=== PATIENT | female | born 1970 | race Caucasian/White ===

== ENCOUNTER 2017-02-24 14:52 | Outpatient (CLI) | payer OTHER ==
[~2017-02-24] VITALS: Ht 162.6 cm; Wt 74.5 kg
--- NOTE | 2017-02-24 15:28 | PN ---
Date/Time of Note Date/Time of Note DATE: 02/24/17 TIME: 15:23 Outpatient Progress Note Chief Complaint Abdominal pain/UTI/diabetes HPI Abdominal pain/patient has slight abdominal discomfort, patient was recently hospitalized, patient had kidney stone, patient had JJ stent removed and according to patient told stone was lasered and new JJ stent was placed on, patient still has slight right side of the abdominal discomfort, pain bearable with Ward, UTI/no frequency urgency, patient on Macrobid, Diabetes/no polyps or polyuria hypoglycemia, Review of Systems Const: No Fever, no chills, no Wt. loss, no Fatigue, normal appetite, no diaphoresis. Eyes: No pain, no discharge, no redness, no visual change, no foreign body. ENT: No pain, no bleeding, no congestion, no sore throat, no dysphagia, no discharge or rhinitis. Lymph: No adenopathy, no tender nodes, no lymphedema. Resp: No SOB, no cough, no sputum, no wheezing, no chest pain. CV: No chest pain, no palpitaions, no LOCKETT, no PND, no edema. GI: Normal appetite, right-sided abdominal pain and minimal flank discomfort,, no nausea, no vomiting, no diarrhea, no blood, no constipation. : No frequency, no urgency, no dysuria, no hematuria, no flank pain, no discharge, no bleeding. Musc: Delete no back pain, no neck pain, no knee pain, no restricted ROM. Skin: No rash, no skin lesions, no erythema, no laceration, no bruising, no pruritus. Neuro: No GRIER, no dizziness, no syncope, no seizure, no focal-weakness. Endo: No polyuria, no polydypsia, no dry-skin, no temp-intolerance. Psych: No hallucinations, no depression, no anxiety, no suicidal ideation. Ext: No edema, no pain, no ulcer, no weakness. Physical Exam General Appearance: A 47 year-old female who appears well-developed, well- nourished, in no acute distress. HEENT: Head normocephalic, atraumatic. Pupils equal, round, reactive to light and accommodate. Sclerae are no jaundice. Nasal turbinates pink without erythema or nasal discharge. Mucous membranes pink and moist without lesions. Oropharynx clear without any exudate or discharge. NECK: Supple. Trachea midline, No thyromegaly, No cervical lymphadenopathy, No mass, No carotid bruits, No JVD, Carotid pulses 2+ bilaterally. PULMONARY: Clear to auscultaion bilaterally, No retractions, Chest expansion symmetric bilaterally, no rales, no ronchi, no dulness on percussion. CARDIAC: Normal SI and S2, Regular rate and rythm, no murmur, gallop, or rub. GASTROINTESTINAL: Abdomen is soft, minimal abdominal discomfort,, Non Rigid, No distention, Positive bowel sounds x4 quadrants, Liver normal. SKIN: Warm, dry, no rash, no bruise, no echmosis. EXTREMITIES: Bilateral lower extremities normal, no edema, no phlabitus, pulse palpable, no contracture. MUSCULOSKELETAL: Spine Normal, Non-tender, Normal range of motion, No swelling, no deformity, no clubbing, or cyanosis, the patient has no edema to bilateral lower extremities, dorsalis pedis pulses palpable bilaterally. NEUROLOGIC: The patient is awake, alert, oriented, responding to yes/no questions appropriately, moving all extremities, cranial nerve intact, normal strenght, normal power, normal coordination, normal gait. PMH No allergy, Kidney stone/UTI/diabetes/sinus tachycardia Social Hx No smoking no drinking, Family Hx Noncontributory Assessment/Plan Impression Abdominal pain/UTI/diabetes/sinus tachycardia Plan Patient education done about her condition, Patient blood sugar under control, control the blood sugar control the weight, Patient has antibiotic, and pain medication, patient comfortable with the pain medication at present, Patient has sinus tachycardia in the hospital, patient was put on telemetry, patient still has sinus tachycardia, I do not have any results of thyroid function, Patient blood pressure is still elevated, and has sinus tachycardia, will add metoprolol 25 mg daily, if sinus tachycardia persist will do thyroid function test, If sinus tachycardia persist patient may need workup patient explained, side effects of medication explained, Patient advised to go to the ER if patient has a temperature, or sepsis, or call us or go to primary physician, Patient has appointment with urologist also, TYLER DODGE MD Feb 24, 2017 15:28
[2017-02-24] MEDS ORDERED: HYDR-902 PO (15:37)
[2017-02-24] MEDS ORDERED: LINE600T PO (15:37)
[2017-02-24 15:38] VITALS: BP 144/81; PULSE 115; RESP 18; Ht 162.6 cm; Wt 74.5 kg
== END 2017-02-24 16:38 | disposition home or self-care (01) ==
LOC: DCC 14:52
PROVIDERS: ATTEND Internal Medicine
DX: R10.9 Unspecified abdominal pain (principal); N39.0 Urinary tract infection, site not specified; E11.9 Type 2 diabetes mellitus without complications; R00.0 Tachycardia, unspecified
CPT/HCPCS: G0463

== ENCOUNTER 2017-03-10 14:19 | Outpatient (CLI) | END 2017-03-10 15:54 | disposition home or self-care (01) ==